=== PATIENT | male | born 1945 | race Hispanic/Latino ===

== ENCOUNTER 2020-07-29 22:03 | Emergency (ER) | payer BC, MEDICARE, OTHER ==
[2020-07-29] MEDS ORDERED: DiphenhydrAMINE HCL 50 MG/ML VIAL ONE (22:40)
[2020-07-29] MEDS ORDERED: METHYLPREDNISOLONE SOD SUCC 125MG/2ML VIAL ONE (22:40)
== END 2020-07-30 00:40 | disposition home or self-care (01) ==
LOC: EDH 22:03
DX: R21 Rash and other nonspecific skin eruption (principal); T39.395A Adverse effect of other nonsteroidal anti-inflammatory drugs [NSAID], initial encounter; L29.9 Pruritus, unspecified; I10 Essential (primary) hypertension; E78.5 Hyperlipidemia, unspecified; Z88.0 Allergy status to penicillin; Y92.89 Other specified places as the place of occurrence of the external cause
CPT/HCPCS: 96374; 96375; 99284; J1200; J2930

== ENCOUNTER 2024-02-27 19:40 | Emergency (ER) | payer OTHER ==
[~2024-02-27] VITALS: Ht 160 cm; Wt 75.7 kg
[2024-02-27 20:09] LABS: RAPID GROUP A STREP negative (NEGATIVE)
[2024-02-27] MEDS: DEXAMETHASONE SOD PHOSPHATE 4 MG/ML 1ML VIAL IM ONE (20:09)
[2024-02-27 20:15] LABS: INFLUENZA TYPE A Negative For Type A (NEGATIVE); INFLUENZA TYPE B Negative For Type B (NEGATIVE)
[2024-02-27 20:20] LABS: COVID19 (SARS ANTIGEN RAPID) POSITIVE FOR SARS AG (NEGATIVE)
[2024-02-27 20:35] VITALS: PULSE 89; RESP 20
[2024-02-27] MEDS: ALBUTEROL 0.083% 2.5 MG/3 ML INH IH ONE (20:35)
[2024-02-27] MEDS: LEVOFLOXACIN 500 MG TABLET PO SCH (20:41)
[2024-02-27] MEDS ORDERED: BENZ-39 PO (21:16)
[2024-02-27] MEDS ORDERED: ALBUHFA IH (21:16)
[2024-02-27] MEDS ORDERED: METH4TAB3 PO (21:16)
[2024-02-27] MEDS ORDERED: LEVO-70 PO (21:16)
[2024-02-27 21:24] VITALS: BP 107/54; PULSE 99; RESP 19; O2SAT 100
== END 2024-02-27 22:05 | disposition home or self-care (01) ==
LOC: EDH 19:40
DX: U07.1 COVID-19 (principal); J12.82 Pneumonia due to coronavirus disease 2019; Z88.0 Allergy status to penicillin
CPT/HCPCS: 99284; 71045; 87426; 87880; 87804 ×2; 96372; 94640; J1100